=== PATIENT | male | born 1980 | race Caucasian/White ===

== ENCOUNTER 2016-10-31 03:19 | Emergency (ER) | payer OTHER ==
[2016-10-31] MEDS ORDERED: LIDOCAINE VISCOUS 2% 15 ML UDC MM STA (04:39)
[2016-10-31] MEDS ORDERED: MAG HYDROX/AL HYDROX/SIMETH 30 ML UDC PO STA (04:39)
[2016-10-31] MEDS ORDERED: LIDOCAINE VISCOUS 2% 15 ML UDC MM ONE (04:40)
[2016-10-31] MEDS ORDERED: MAG HYDROX/AL HYDROX/SIMETH 30 ML UDC ONE (04:40)
--- NOTE | 2016-10-31 04:44 | ED Physician Documentation ---
PD HPI ABD PAIN - Stated complaint Stated Complaint: ABDOMINAL PAIN - Chief complaint Chief Complaint: Abd Pain - History obtained from History obtained from: Patient, Family - History of Present Illness Timing - onset: How many days ago (4) Timing - duration: Days (4) Timing - details: Gradual onset, Still present, Waxing and waning Quality: Sharp, Pain Location: Epigastric, LUQ, LLQ Radiation: No: Chest, , Lower back, Left flank, Left shoulder, Right flank, Right shoulder, Upper back Worsened by: No: Eating Associated symptoms: Nausea. No: Fever, Vomiting, Hematemesis, Diarrhea, Constipation, Melena, Hematochezia, Dysuria, Hematuria, Chest pain, Dizzy Similar symptoms before: Has not had sx before Recently seen: Clinic (seen for routine yesterday morning and was not having any pain at the time.) - Additional information Additional information: 36y/o male began to have some pain in the left abdomen about 4 days ago. He describes the pain as shifting and not continuous. The pain has some spikes of severe pain. He does not think he is constipate but his BM's have been less than normal. Review of Systems Constitutional: reports: Fatigue. denies: Fever, Chills, Myalgias Eyes: denies: Decreased vision Ears: denies: Ear pain Nose: denies: Congestion Throat: denies: Sore throat Cardiac: denies: Chest pain / pressure, Palpitations Respiratory: denies: Dyspnea, Cough GI: reports: Abdominal Pain. denies: Nausea, Vomiting, Diarrhea : denies: Dysuria, Frequency Skin: denies: Rash Musculoskeletal: denies: Neck pain, Back pain, Extremity pain Neurologic: denies: Generalized weakness, Focal weakness PD PAST MEDICAL HISTORY - Past Medical History Past Medical History: No - Past Surgical History Past Surgical History: No - Present Medications Home Medications: Ambulatory Orders Medication Instructions Recorded Confirmed Terbinafine [Lamisil] 250 mg PO DAILY 10/31/16 10/31/16 - Allergies Allergies/Adverse Reactions: Allergies Allergy/AdvReac Type Severity Reaction Status Date / Time No Known Drug Allergies Allergy Verified 10/31/16 03:28 - Social History Does the pt smoke?: No Smoking Status: Never smoker Does the pt drink ETOH?: No Does the pt have substance abuse?: No - Immunizations Immunizations are current?: Yes - POLST Patient has POLST: No PD ED PE NORMAL - Vitals Vital signs reviewed: Yes (diastolic hypertension ) - General General: Alert and oriented X 3, No acute distress - HEENT HEENT: Atraumatic, PERRL, EOMI - Neck Neck: Supple, no meningeal sign, No bony TTP - Cardiac Cardiac: RRR, No murmur - Respiratory Respiratory: No respiratory distress, Clear bilaterally - Abdomen Abdomen: Soft, Other (mild tenderness to the Left lower quadrant is not reproducible and there is no garding or rebound. ) - Back Back: No CVA TTP, No spinal TTP - Derm Derm: Normal color, Warm and dry, No rash - Extremities Extremities: No deformity, No edema - Neuro Neuro: Alert and oriented X 3, No motor deficit, No sensory deficit, Normal speech - Psych Psych: Normal mood, Normal affect Results - Vitals Vitals: Vital Signs - 24 hr 10/31/16 10/31/16 03:29 05:43 Temperature 36.5 C Heart Rate 48 L 54 L Respiratory 15 14 Rate Blood Pressure 123/85 H 130/88 H O2 Saturation 97 98 Oxygen O2 Source Room air - Labs Labs: Laboratory Tests 10/31/16 10/31/16 10/31/16 03:45 03:45 04:50 WBC 9.8 RBC 5.64 Hgb 15.7 Hct 47.1 MCV 83.6 MCH 27.9 MCHC 33.4 RDW 12.8 Plt Count 204 MPV 8.5 Neut # 7.1 H Lymph # 2.1 Isabella # 0.5 Eos # 0.0 Baso # 0.0 Absolute Nucleated RBC 0.00 Nucleated RBCs 0.0 Sodium 138 Potassium 3.8 Chloride 102 Carbon Dioxide 28 Anion Gap 8.0 BUN 18 Creatinine 1.0 Estimated GFR (MDRD) 84 L Glucose 124 H Calcium 10.2 Total Bilirubin 0.5 AST 17 ALT 21 Alkaline Phosphatase 35 L Total Protein 7.2 Albumin 4.6 Globulin 2.6 Albumin/Globulin Ratio 1.8 Lipase 17 L Urine Color YELLOW Urine Clarity CLEAR Urine pH 6.0 Ur Specific Norman >=1.030 H Urine Protein NEGATIVE Urine Glucose (UA) NEGATIVE Urine Ketones NEGATIVE Urine Occult Blood NEGATIVE Urine Nitrite NEGATIVE Urine Bilirubin NEGATIVE Urine Urobilinogen 0.2 (NORMAL) Ur Leukocyte Esterase NEGATIVE Ur Microscopic Review NOT INDICATED Urine Culture Comments NOT INDICATED - Rads (name of study) CT abdomen and pelvis without Radiology: Prelim report reviewed, EMP read indepedently (stool throughout the colon without significant distention), See rad report PD MEDICAL DECISION MAKING - ED course Complexity details: reviewed results, re-evaluated patient, considered differential, d/w patient, d/w family ED course: 36 y/o male with shifting abdominal pain feels this is mostly in the LLQ. A GI cocktail did not improve the pain. A workup was benign and the finding was a continuous stool load throughout the colon. He was administered MOM and diagnosed with constipation. Departure - Departure Disposition: Home, Self Care Clinical Impression: Constipation Qualifiers: Constipation type: slow transit constipation Qualified Code(s): K59.01 - Slow transit constipation Condition: Stable Instructions: ED Constipation Follow-Up: Isaac Kaiser DO [Primary Care Provider] - Comments: Today in the Emergency Department your blood pressure was elevated. This can happen from the stress of the visit itself, from a current illness or circumstance or from uncontrolled hypertension. If you take blood pressure medications take your usual mediations, have your blood pressure re-checked in an appropriate setting and follow up any elevation with your primary care doctor.
[2016-10-31 05:03] LABS: BASOPHILS % (AUTO) 0.3 %; EOSINOPHILS % (AUTO) 0.3 %; HCT - HEMATOCRIT 47.1 % (42.0-52.0); HGB - HEMOGLOBIN 15.7 g/dL (14.0-18.0); LYMPHOCYTES # (AUTO) 2.1 10^3/uL (1.5-3.5); LYMPHOCYTES % (AUTO) 21.9 %; MEAN CORPUSCULAR HEMOGLOBIN 27.9 pg (27.0-31.0); MEAN CORPUSCULAR HGB CONC 33.4 g/dL (32.0-36.0); MEAN CORPUSCULAR VOLUME 83.6 fL (80.0-94.0); MEAN PLATELET VOLUME 8.5 fL (7.4-11.4); MONOCYTES # (AUTO) 0.5 10^3/uL (0.0-1.0); MONOCYTES % (AUTO) 5.2 %; NEUTROPHILS # (AUTO) 7.1 10^3/uL (1.5-6.6); NEUTROPHILS % (AUTO) 72.3 %; RED BLOOD COUNT 5.64 10^6/uL (4.70-6.10); RED CELL DISTRIBUTION WIDTH 12.8 % (12.0-15.0); UNCORRECTED WHITE BLOOD COUNT 9.8 x10^3/uL; WHITE BLOOD COUNT 9.8 x10^3/uL (4.8-10.8)
[2016-10-31 05:13] LABS: ALBUMIN/GLOBULIN RATIO 1.8 (1.0-2.2); BILIRUBIN,TOTAL 0.5 mg/dL (0.2-1.0); CALCIUM 10.2 mg/dL (8.5-10.3); POTASSIUM 3.8 mmol/L (3.5-5.0); TOTAL PROTEIN 7.2 g/dL (6.7-8.2)
[2016-10-31 05:16] LABS: BILIRUBIN,URINE NEGATIVE (NEGATIVE)
[2016-10-31 05:18] LABS: UA CHARGE (STRIP ONLY) YES; UR CULTURE IF IND NOT INDICATED
[2016-10-31 05:44] VITALS: BP 130/88
--- NOTE | 2016-10-31 06:11 | CT Preliminary Report ---
Exam: CT Abdomen/Pelvis W/O IMPRESSION: 1. No urolithiasis seen. 2. Suspect colonic diverticula, but no evidence of diverticulitis. 3. No other acute abnormalities seen. [facility] SITE ID: [id number]
--- NOTE | 2016-10-31 06:14 | CT Report ---
EXAM: CT ABDOMEN AND PELVIS (CT KUB) EXAM DATE: 10/31/2016 05:20 AM. CLINICAL HISTORY: Left lower quadrant pain. COMPARISONS: None. TECHNIQUE: Routine axial helical CT imaging was performed through the abdomen and pelvis without IV c ontrast. Reconstructions: Coronal and sagittal. In accordance with CT protocol optimization, one or more of the following dose reduction techniques w ere utilized for this exam: automated exposure control, adjustment of mA and/or KV based on patient s ize, or use of iterative reconstructive technique. FINDINGS: Lung Bases: Unremarkable. Right Kidney/Ureter: No stones, hydronephrosis, or hydroureter. No perinephric fat stranding. Left Kidney/Ureter: No stones, hydronephrosis, or hydroureter. No perinephric fat stranding. Other Solid Organs: Noncontrast images of the solid organs are grossly unremarkable. Gallbladder/Bile Ducts: Unremarkable. Peritoneal Cavity: No bowel obstruction seen. There probably are some colonic diverticula but no dive rticulitis is noted. No lymphadenopathy. No free air or free fluid. Appendix appears normal. Pelvic Organs: No bladder stones or wall thickening. Noncontrast images of the visualized pelvic orga ns are unremarkable. Vasculature: Unremarkable. Other: None. IMPRESSION: 1. No urolithiasis seen. 2. Suspect colonic diverticula, but no evidence of diverticulitis. 3. No other acute abnormalities seen. [facility] Referring Provider Line: [phone] SITE ID: [id number]
[2016-10-31] MEDS ORDERED: MAGNESIUM HYDROXIDE 2,400 MG/30 ML UDC ONE (06:49)
[2016-10-31] MEDS ORDERED: MAGNESIUM HYDROXIDE 2,400 MG/30 ML UDC PO STA (06:49)
== END 2016-10-31 06:57 | disposition home or self-care (01) ==
LOC: ED 03:19
DX: K59.01 Slow transit constipation (principal)
CPT/HCPCS: 36415; 74176; 80053; 81003; 83690; 85025; 87040; 99283; A9270; 81001; 87086

== ENCOUNTER 2018-02-25 14:05 | Outpatient (CLI) | payer OTHER | END 2018-02-25 14:06 | disposition home or self-care (01) | LOC: SC 14:05 | PROVIDERS: ATTEND Internal Medicine Pulmonary Disease | DX: G47.33 Obstructive sleep apnea (adult) (pediatric) (principal) | CPT/HCPCS: 99203; 99212 ==

== ENCOUNTER 2018-11-13 21:04 | Observation (INO) | payer OTHER ==
--- NOTE | 2018-11-13 21:20 | ED Physician Documentation ---
History of Present Illness - Stated complaint Stated Complaint: BROWN URINE/BODY PAIN - Chief complaint Chief Complaint: General - History obtained from History obtained from: Patient - Additonal information Additional information: Patient is a previously healthy 38-year-old male presenting with concern for rhabdomyolysis. Patient reports that he traveled to the [facility] last week house hunting with his and did not perform any significant exercise during that time, but feels that he was likely dehydrated. Patient then returned home and on Sunday performed an exceedingly difficult to [employer] workout. Patient reports that he usually performs CrossFit several times a week, but had not done so in several weeks due to life activities and busyness. Over the past several days he has felt exceedingly tired, weak, sore, and started having darker colored urine this evening. Patient contacted his physician who directed him to the ED. He otherwise denies specific pain including chest pain, abdominal pain, as well as other urinary changes, stool changes, vomiting, fever, rash, bruising, or other skin changes.No other improving or worsening factors noted. Review of Systems Constitutional: denies: Fever GI: denies: Abdominal Pain : reports: Hematuria PD PAST MEDICAL HISTORY - Past Medical History Past Medical History: No - Past Surgical History Past Surgical History: No - Present Medications Home Medications: Ambulatory Orders Medication Instructions Recorded Confirmed Terbinafine [Lamisil] 250 mg PO DAILY 10/31/16 10/31/16 - Allergies Allergies/Adverse Reactions: Allergies Allergy/AdvReac Type Severity Reaction Status Date / Time No Known Drug Allergies Allergy Verified 10/31/16 03:28 - Social History Does the pt smoke?: No Smoking Status: Never smoker Does the pt drink ETOH?: No Does the pt have substance abuse?: No - Immunizations Immunizations are current?: Yes - POLST Patient has POLST: No PD ED PE NORMAL - Vitals Vital signs reviewed: Yes - General General: Alert and oriented X 3, No acute distress, Well developed/nourished - HEENT HEENT: Atraumatic, Moist mucous membranes - Cardiac Cardiac: RRR, No murmur - Respiratory Respiratory: No respiratory distress, Clear bilaterally - Abdomen Abdomen: Normal bowel sounds, Soft, Non tender, Non distended - Derm Derm: Normal color, Warm and dry, No rash - Extremities Extremities: No deformity, No tenderness to palpate, No edema, No calf tenderness / cord - Neuro Neuro: Alert and oriented X 3, No motor deficit, No sensory deficit - Psych Psych: Normal mood, Normal affect Results - Vitals Vitals: Vital Signs - 24 hr 11/13/18 21:10 Temperature 36.7 C Heart Rate 70 Respiratory 16 Rate Blood Pressure 155/110 H O2 Saturation 97 Oxygen O2 Source Room air - Labs Labs: Laboratory Tests 11/13/18 11/13/18 11/13/18 21:15 21:15 21:15 WBC 9.8 RBC 5.49 Hgb 15.7 Hct 45.9 MCV 83.6 MCH 28.5 MCHC 34.1 RDW 12.8 Plt Count 215 MPV 7.7 Neut # (Auto) 7.0 H Lymph # (Auto) 2.1 Dent # (Auto) 0.6 Eos # (Auto) 0.1 Baso # (Auto) 0.1 Absolute Nucleated RBC 0.00 Nucleated RBC % 0.0 PT 11.8 INR 1.0 APTT 27.5 Sodium 140 Potassium 3.9 Chloride 102 Carbon Dioxide 28 Anion Gap 10.0 BUN 16 Creatinine 0.9 Estimated GFR (MDRD) 94 Glucose 90 Lactic Acid Calcium 9.1 Total Bilirubin 0.8 AST 732 H ALT 222 H Alkaline Phosphatase 47 Total Creatine Kinase 69531 H* CK-MB (CK-2) Total Protein 6.8 Albumin 4.5 Globulin 2.3 Albumin/Globulin Ratio 2.0 Lipase 27 Urine Color Urine Clarity Urine pH Ur Specific Hudson Urine Protein Urine Glucose (UA) Urine Ketones Urine Occult Blood Urine Nitrite Urine Bilirubin Urine Urobilinogen Ur Leukocyte Esterase Urine RBC Urine WBC Ur Squamous Epith Cells Urine Bacteria Ur Microscopic Review Urine Culture Comments 11/13/18 11/13/18 11/13/18 21:15 21:31 22:34 WBC RBC Hgb Hct MCV MCH MCHC RDW Plt Count MPV Neut # (Auto) Lymph # (Auto) Dent # (Auto) Eos # (Auto) Baso # (Auto) Absolute Nucleated RBC Nucleated RBC % PT INR APTT Sodium Potassium Chloride Carbon Dioxide Anion Gap BUN Creatinine Estimated GFR (MDRD) Glucose Lactic Acid 1.1 Calcium Total Bilirubin AST ALT Alkaline Phosphatase Total Creatine Kinase CK-MB (CK-2) 68.9 H Total Protein Albumin Globulin Albumin/Globulin Ratio Lipase Urine Color YELLOW Urine Clarity CLEAR Urine pH 6.5 Ur Specific Hudson 1.020 Urine Protein 30 H Urine Glucose (UA) NEGATIVE Urine Ketones NEGATIVE Urine Occult Blood LARGE H Urine Nitrite NEGATIVE Urine Bilirubin NEGATIVE Urine Urobilinogen 0.2 (NORMAL) Ur Leukocyte Esterase NEGATIVE Urine RBC 0-5 Urine WBC 0-3 Ur Squamous Epith Cells RARE Squamous Urine Bacteria None Seen Ur Microscopic Review INDICATED Urine Culture Comments NOT INDICATED PD MEDICAL DECISION MAKING - ED course Complexity details: reviewed results, re-evaluated patient, considered differential, d/w patient, d/w family ED course: Feel that patient is likely experiencing rhabdomyolysis given his excessive workout several days ago, preceding dehydration, as well as his complaints today. Physical exam is relatively unremarkable and do not find evidence of petechiae, ecchymosis, or other rash. Do not feel patient is in DIC, hemorrhage, or other emergent hematological condition. Patient also denies symptoms that would raise high suspicion for DVT, PE, cardiac issues, intra- abdominal issues, but considered. Patient to start on significant fluid resuscitation and screening lab work and urinalysis obtained. Do not feel he requires imaging at this juncture.Screening lab work returned positive for CK 71,654, CK-MB 68.9, ALT 222, AST 732 and blood present in the urine. Unable to order myoglobin testing in the urine. Patient continued on IV fluids and had no significant further complaints. At this time, feel it is best to bring patient into the hospital for further fluid resuscitation, as well as repeat labs and any other treatment necessary. Patient and hospitalist amenable to this plan. Departure - Departure Clinical Impression: Rhabdomyolysis Qualifiers: Rhabdomyolysis type: traumatic Encounter type: initial encounter Qualified Code(s): T79.6XXA - Traumatic ischemia of muscle, initial encounter Condition: Good
[2018-11-13] MEDS ORDERED: SODIUM CHLORIDE 0.9% 3,000 ML IV ONE (21:26)
[2018-11-13 21:36] LABS: BASOPHILS # (AUTO) 0.1 10^3/uL (0.0-0.1); BASOPHILS % (AUTO) 0.5 %; EOSINOPHILS # (AUTO) 0.1 10^3/uL (0.0-0.7); EOSINOPHILS % (AUTO) 0.7 %; HGB - HEMOGLOBIN 15.7 g/dL (14.0-18.0); LYMPHOCYTES # (AUTO) 2.1 10^3/uL (1.5-3.5); LYMPHOCYTES % (AUTO) 21.3 %; MEAN CORPUSCULAR HEMOGLOBIN 28.5 pg (27.0-31.0); MEAN CORPUSCULAR HGB CONC 34.1 g/dL (32.0-36.0); MEAN CORPUSCULAR VOLUME 83.6 fL (80.0-94.0); MEAN PLATELET VOLUME 7.7 fL (7.4-11.4); MONOCYTES # (AUTO) 0.6 10^3/uL (0.0-1.0); MONOCYTES % (AUTO) 6.5 %; PLT - PLATELET COUNT 215 10^3/uL (130-450); RED BLOOD COUNT 5.49 10^6/uL (4.70-6.10); RED CELL DISTRIBUTION WIDTH 12.8 % (12.0-15.0); WHITE BLOOD COUNT 9.8 x10^3/uL (4.8-10.8)
[2018-11-13 21:41] LABS: PT - PROTHROMBIN TIME 11.8 secs (9.9-12.6)
[2018-11-13 21:48] LABS: PARTIAL THROMBOPLASTIN TIME 27.5 secs (24.9-33.3)
[2018-11-13 22:02] LABS: ALBUMIN 4.5 g/dL (3.2-5.5); BILIRUBIN,TOTAL 0.8 mg/dL (0.2-1.0); CALCIUM 9.1 mg/dL (8.5-10.3); CREATININE 0.9 mg/dL (0.6-1.2); TOTAL PROTEIN 6.8 g/dL (6.7-8.2)
[2018-11-13 22:43] LABS: BILIRUBIN,URINE NEGATIVE (NEGATIVE); GLUCOSE, URINE (UA) NEGATIVE (NEGATIVE); KETONES,URINE (UA) NEGATIVE (NEGATIVE); LEUKOCYTE ESTERASE, URINE NEGATIVE (NEGATIVE); NITRITE,URINE NEGATIVE (NEGATIVE); OCCULT BLOOD,URINE LARGE (NEGATIVE); PH,URINE 6.5 PH (5.0-7.5); PROTEIN,URINE 30 mg/dL (NEGATIVE); UROBILINOGEN,URINE 0.2 (NORMAL) E.U./dL (NORMAL)
[2018-11-13 22:47] LABS: CLARITY,URINE CLEAR (CLEAR)
[2018-11-13 22:56] LABS: BACTERIA,URINE None Seen /HPF (None Seen); RBC,URINE 0-5 /HPF (0-5); SQUAMOUS EPITHELIAL CELL,UR RARE Squamous (<= Few)
[2018-11-13] MEDS ORDERED: SODIUM CHLORIDE 0.9% 1,000 ML IV SCH (23:45)
[2018-11-13] MEDS ORDERED: ONDANSETRON 4 MG/2 ML VIAL IVP PRN (23:57)
--- NOTE | 2018-11-14 00:05 | HISTORY & PHYSICAL EXAMINATION ---
Chief Complaint - Chief Complaint Chief Complaint: fatigue, sore muscles, now with tea colored urine History of Present Illness - Admitted From Admitted From:: Home/emergency room - History Obtained From Records Reviewed: [facility] History obtained from: Patient and emergency room doctor Exam Limitations: None - History of Present Illness HPI Comment/Other: He is a healthy white male who has no major medical illnesses. He was back on the [facility] looking for new housing since he is about to move there. 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 He has not worked out for about 3 weeks. Workout was particularly aggressive. Over the next few days he has had sore muscles that were getting worse. He felt weak and fatigued. Today his urine turned tea colored. He spoke to his physician at the [facility] and they recommended he come to the emergency room. He is taking Lamisil for fungal infection. He is not on a statin. He has had no trauma, falls. Denies fever, chills. There is no redness, swelling, heat to any muscle group. In the emergency room he was evaluated by Dr. Mcdnaiels. He is slightly hypertensive at 155/110. After hydration with 2 L he came down to 138/85. He is afebrile, normal pulse rate, saturating well on room air. Physical exam is normal. However his CPK is 71,654. AST is 732, ALT 222. BUN and creatinine are normal as is a CBC. He is now placed in observation for rhabdomyolysis. He does not have electrolyte abnormality, renal failure. There is no muscle infection, trauma or myopathy requiring immunosuppressive's. History - Past Medical History Cardiovascular: reports: Other (Usually has low blood pressure. 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 No active TB hx.) Neuro: reports: None Endocrine/Autoimmune: reports: None GI: reports: None : reports: None HEENT: reports: None Psych: reports: None Musculoskeletal: reports: None Derm: reports: Other (Onychomycosis of the right great toenail for years, currently on second 90-day stint of Lamisil) MRSA Hx?: No - Past Surgical History HEENT: reports: Other ([facility]) - Family & Social History Family History Comment/Other: Mother is somewhere in her early to mid 60s. She has rheumatoid arthritis but is otherwise healthy. father is unknown. One half brother is completely healthy. 2 children are completely healthy Living arrangement: At home Living Situation: With spouse/s.o. Social History Notes: From [place]. Smoked starting at the age of 15 and stopped around age 24. The most he smoked was 1 pack/day. He drinks 1 beer, approximately 1 a week. No history of alcohol abuse or recreational substance abuse. He is to his second , they have 2 children together. 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 - Substance History Use: Uses substance without health or social issues: Alcohol Abuse: Recurrent use of substance despite neg consequences: NONE Dependence: Experiences withdrawal or developed tolerances: NONE - POLST Patient has POLST: No POLST Status: Full Code Meds/Allgy - Home Medications Home Medications: Ambulatory Orders Medication Instructions Recorded Confirmed Terbinafine [Lamisil] 250 mg PO DAILY 10/31/16 10/31/16 - Allergies Allergies/Adverse Reactions: Allergies Allergy/AdvReac Type Severity Reaction Status Date / Time No Known Drug Allergies Allergy Verified 10/31/16 03:28 Review of Systems - Constitutional Constitutional: reports: Fatigue, Malaise, Weakness. denies: Fever, Chills, Poor appetite, Diaphoresis, Night sweats - Eyes Eyes: denies: Pain, Irritation, Amaurosis, Blurred vision, Spots in vision, Field loss, Vision loss - Ears, Nose & Throat Ears, Nose & Throat: denies: Ear pain, Hearing loss, Hearing aids, Tinnitus, Vertigo, Nasal obstruction, Nasal congestion, Postnasal drainage, Sore throat - Cardiovascular Cariovascular: denies: Irregular heart rate, Palpitations, Chest pain, Edema, Lightheadedness, Syncope, Exertional dyspnea, Decr. exercise tolerance - Respiratory Respiratory: reports: Snoring, Apnea. denies: Cough, Sputum production, Wheezing, Hemoptysis, Orthopnea, SOB at rest, SOB with exertion, Stridor, Pleuritic pain - Gastrointestinal Gastrointestinal: reports: Constipation (occasionally). denies: Abdominal pain, Abdominal distention, Diarrhea, Change in bowel habits, Rectal bleeding, Black stools, Bloody stools, Nausea - Genitourinary Genitourinary: reports: Other (tea colored urine today). denies: Dysuria, Frequency, Urgency, Hematuria, Incontinence, Flank pain - Musculoskeletal Musculoskeletal: reports: Muscle pain, Muscle aches, Stiffness, Muscle weakness. denies: Back pain, Limited range of motion, Gout, Joint pain, Joint swelling - Integumentary Integumentary: denies: Rash, Pruritis, Lesions, Dryness, Lumps, Acne, Pigment changes - Neurological Neurological: reports: General weakness. denies: Focal weakness, Headache, Dizziness, Numbness, Memory problems, Pre-existing deficit, Abnormal gait, Seizures, Incoordination, Slurred speech - Psychiatric Psychiatric: denies: Depression, Anxiety, Suicidal, Delusions, Hallucinations - Endocrine Endocrine: denies: Polyuria, Polydypsia, Polyphagia - Hematologic/Lymphatic Hematologic/Lymphatic: denies: Anemia, Bruising, Petechiae, Blood clots, Lymphadenopathy Prior Level of Functionality: Fully active father and . Completely independent with activities of daily living. Fully employed with no restrictions. Exam - Vital Signs Reviewed Vital Signs: Yes Vital Signs: Vital Signs x48h Temp Pulse Resp BP Pulse Ox 11/14/18 00:01 57 L 20 138/85 H 100 11/13/18 21:10 36.7 C 70 16 155/110 H 97 - Physical Exam General Appearance: positive: No acute distress, Alert, Other (5 foot 10-1/2 i nch male at 93 kg with large muscle groups of arms chest legs thighs. He says they are all diffusely swollen) Eyes Bilateral: positive: PERRL, EOMI ENT: positive: Other (Uvula has been removed.). negative: Oral lesions Neck: positive: Thyroid nml, No JVD, Trachea midline. negative: Stiff neck, Carotid bruit Respiratory: positive: Chest non-tender. negative: Wheezes, Rales, Rhonchi Cardiovascular: negative: Regular rate & rhythm, Systolic murmur, Gallop/S4, Friction rub Peripheral Pulses: positive: 1+ Abdomen: positive: Non-tender, No organomegaly, Nml bowel sounds, No distention. negative: Guarding, Rebound Back: positive: Nml inspection Skin: positive: Color nml, Warm, Dry Extremities: positive: Full ROM, No pedal edema, Other (Although the muscles appear grossly normal to me, he says that everything just seems swollen. Muscles of triceps, biceps, forearms, quadriceps, hamstrings, calves all hurt. But there is no heat, redness, or edema.) Neurologic/Psychiatric: positive: Oriented x3, CN's nml (2-12), Motor nml. negative: Weakness Reflexes: Bicep (R): 1+, Bicep (L): 1+, Knee (R): 1+, Knee (L): 1+, Ankle (R): 0, Ankle (L): 0 Babinski Reflex: Right: Down, Left: Down Conclusion/Plan - Problem List (1) Rhabdomyolysis Conclusion/Plan: Characterized by myalgias, pigment dysuria, muscle weakness. CPK is elevated. Neurologic exam is normal. He does not have electrolyte imbalance, acute renal failure, compartment syndrome, or muscle deformity. Other than Lamisil, he is not taking any other toxic substances. He is not drinking, and does not have any metabolic or genetic disorder. Plan: Observation status IV fluids at 500 cc an hour to achieve a goal of UOP of 200 cc/hr Toxicology screen for alcohol, methamphetamines, barbiturates, benzodiazepines, cocaine, methadone and opiates will be ordered. If any of these are positive, will check hepatitis panel and liver US. Since his weight lifting occurred a few days ago, and his CPK measurement is now few days later, I will hold off on alkalinizing his urine. His BUN and creatinine have been normal with this evaluation. The usual standard is to discharge patients when they have a CK between 5000- 10,000. However there are no clinical trials to support this position. There is no consensus regarding the safety CK level to determine when to stop IV hydration or when it is safe to discharge the patient. In this patient, reducing his CK to less than 50,000, and no pain leads me to think he could be safely discharged and monitor carefully by his primary care provider in the outpatient setting. Qualifiers: Rhabdomyolysis type: traumatic Encounter type: initial encounter Qualified Code(s): T79.6XXA - Traumatic ischemia of muscle, initial encounter (2) Abnormal results of liver function studies Conclusion/Plan: This is usually associated with rhabdomyolysis. However this patient is also on Lamisil. I have explained to him that I would recommend him stopping Lamisil. He is already received a 90-day course for his onychomycosis. And is in his second 90-day course after liver enzymes were found to be negative. If he continues to suffer from nailbed pain from onychomycosis, I would recommend a digital block, and removing the nail as a whole. Is a new nail grows in, he can put antifungal ointment in without having to take Lamisil. (3) Elevated blood pressure reading without diagnosis of hypertension Conclusion/Plan: The patient states that he usually has a very low blood pressure. He is also in such good shape that he usually has bradycardia. So is surprised to hear that his blood pressure is as high as it is. It is already trending on his way down after a few hours in the emergency room. I will let him follow-up with his primary care provider, Dr. Heaton in the outpatient setting - Lab Results Fish Bones: 11/13/18 21:15 11/13/18 21:15 Core Measures - Anticipated LOS I expect patient to be DC'd or transferred within 96 hours.: Yes - DVT/VTE - Prophylaxis VTE/DVT Device ordered at admit?: Yes
[2018-11-14] MEDS: SODIUM CHLORIDE FLUSH 0.9% 10 ML SYRINGE IVP SCH ×3 (01:12→17:26)
[2018-11-14] MEDS: SODIUM CHLORIDE FLUSH 0.9% 10 ML SYRINGE IVP PRN ×3 (01:13→14:58)
[2018-11-14] MEDS: oxyCODONE 5 MG TABLET PO PRN ×4 (01:25→21:59)
[2018-11-14 01:34] LABS: MUDS CUTOFF CONCENTRATIONS CUTOFF CONC BELOW:
[2018-11-14 01:45] LABS: AMPHETAMINE SCREEN,URINE NEGATIVE (NEGATIVE); BENZODIAZEPINES SCREEN, URINE NEGATIVE (NEGATIVE); COCAINE SCREEN URINE NEGATIVE (NEGATIVE); METHADONE SCREEN, URINE NEGATIVE (NEGATIVE); METHAMPHETAMINES SCREEN, URINE NEGATIVE (NEGATIVE); OPIATE SCREEN, URINE NEGATIVE (NEGATIVE); OXYCODONE SCREEN, URINE NEGATIVE (NEGATIVE); PROPOXYPHENE SCREEN, URINE NEGATIVE (NEGATIVE); TRICYCLIC ANTIDEPRESSANT,URINE NEGATIVE (NEGATIVE)
[2018-11-14] MEDS: SODIUM CHLORIDE 0.9% 1,000 ML IV SCH ×10 (03:26→23:36)
[2018-11-14 05:57] LABS: ALBUMIN 3.4 g/dL (3.2-5.5); ALBUMIN/GLOBULIN RATIO 1.7 (1.0-2.2); BILIRUBIN,TOTAL 0.6 mg/dL (0.2-1.0); CALCIUM 7.5 mg/dL (8.5-10.3); CREATININE 0.8 mg/dL (0.6-1.2); TOTAL PROTEIN 5.4 g/dL (6.7-8.2)
[2018-11-14] MEDS ORDERED: CALCIUM GLUCONATE 1,000 MG in SODIUM CHLORIDE 0.9% 50 ML IV ONE (06:56)
[2018-11-14] MEDS ORDERED: CYCLOBENZAPRINE 10 MG TABLET PO PRN (08:32)
[2018-11-14] MEDS ORDERED: HYDROmorphone 0.5 MG/0.5 ML SYRINGE IVP STA (08:33)
--- NOTE | 2018-11-14 08:52 | Discharge Plan ---
Discharge Plan Disposition: Home, Self Care Condition: Good Prescriptions: oxyCODONE ER [OxyCONTIN] 10 mg PO Q8HR #40 tablet Cyclobenzaprine [Flexeril] 10 mg PO TID PRN #30 tablet PRN Reason: Spasms Diet: Regular Activity Restrictions: Activity as Tolerated Shower Restrictions: No Driving Restrictions: No Weight Bearing: Full Weight Instruction Topics: Rhabdomyolysis, ED Narcotic Abuse Additional Instructions or Follow Up instructions: You were admitted for condition called rhabdomyolysis for which you felt sy mptoms of extreme muscle aches, malaise, generalized weakness, and decreased range of motion to your upper extremities. This condition although can cause liver involvement and kidney problems it shows no impairment to your renal function as evidenced in your blood lab test. You do have some mild liver impairment however this resolves over time as well as the overall condition of your rhabdomyolysis. Your creatinine kinase levels were extremely high and these also take time for them to taper off with aggressive fluid resuscitation along with supportive care and pain control. He will continue to take pain medications, muscle relaxants, and keep hydrated throughout your recovery period. You were also instructed to stop Lamisil as this can potentiate further liver damage in the setting of your acute rhabdomyolysis. He will return to your PCP in about 1 or 2 weeks time. No Smoking: If you smoke, Please STOP! Call for help. Follow-up with: GERARD CASTILLO MD [Primary Care Provider] - 2 Weeks (Return to PCP in 1 or 2 weeks)
--- NOTE | 2018-11-14 09:02 | DISCHARGE SUMMARY ---
"Discharge Summary Admit Date: 11/13/18 Discharge Date: 11/14/18 Discharging Provider: Dr. Fuller Primary Care Provider: [facility] navsd Code Status: Attempt Resuscitation Condition at Discharge: Good Discharge Disposition: 01 Home, Self Care - DIAGNOSES Admission Diagnoses: (1) Rhabdomyolysis (2) Abnormal results of liver function studies (3) Elevated blood pressure reading without diagnosis of hypertension Discharge Diagnoses with Status of Each Condition: (1) Acute Rhabdomyolysis, Stable (2) Abnormal results of liver function studies, Resolving (3) Elevated blood pressure reading without diagnosis of hypertension, Stable (4) Bilateral upper extremity myalgias with limited ROM, Improved (5) Impaired fasting glucose, stable - HPI History of Present Illness: Mr. Oswaldo Berumen is a 38-year-old healthy white male who has no major medical illnesses. He was back on the [facility] looking for new housing since he is about to move there. 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 He has not worked out for about 3 weeks. Workout was particularly aggressive. Over the next few days he has had sore muscles that were getting worse. He felt weak and fatigued. Today his urine turned tea colored. He spoke to his physician at the [facility] and they recommended he come to the emergency room. He is taking Lamisil for fungal infection. He is not on a statin. He has had no trauma, falls. Denies fever, chills. There is no redness, swelling, heat to any muscle group. In the emergency room he was evaluated by Dr. Mcdaniels. He is slightly hypertensive at 155/110. After hydration with 2 L he came down to 138/85. He is afebrile, normal pulse rate, saturating well on room air. Physical exam is normal. However his CPK is 71,654. AST is 732, ALT 222. BUN and creatinine are normal as is a CBC. He is now placed in observation for rhabdomyolysis. He does not have electrolyte abnormality, renal failure. There is no muscle infection, trauma or myopathy requiring immunosuppressive's. - CONSULTS | PROCEDURES Consultations: None Procedures: None - HOSPITAL COURSE Hospital Course: Patient was managed medically and supportively with aggressive IV fluid resuscitation as well as pain control with oxycodone, Flexeril, and monitoring of his liver and renal function. In addition CK trending although markedly elevated is not a direct indicator of prognosis. Patient had Lamisil discontinued as this can potentiate further transaminitis and liver impairment. Patient was not placed on Tylenol for this reason alone as well. Patient had some limitations of bilateral upper extremity flexion secondary to his level of rhabdomyolysis however he was ambulatory. Patient was afebrile throughout hospitalization with a lactic acid 1.1 and no evidence of underlying infection or other organ involvement. Patient had a preserved renal function. Despite CK being above 82,000 rhabdomolysis usually begins to improve after approximately 3 to 5 days. Patient lacks GI or symptoms and does not have gross hematuria. In addition patient lacks evidence of metabolic acidosis. Patient will be be given a prescription to Flexeril 10 mg p.o. 3 times daily as needed as well as oxycodone 10 mg ER every 8 hours as needed for limited quantity. Upon discharge patient was hemodynamically stable, complaining of myalgias mainly to the upper extremities and truncal area but otherwise unremarkable and able to go home in stable disposition to follow-up with PCP in 1 to 2 weeks. - ALLERGIES Allergies/Adverse Reactions: Allergies Allergy/AdvReac Type Severity Reaction Status Date / Time No Known Drug Allergies Allergy Verified 10/31/16 03:28 - MEDICATIONS Home Medications: Ambulatory Orders Medication Instructions Recorded Confirmed Cyclobenzaprine [Flexeril] 10 mg PO TID PRN #30 tablet 11/14/18 oxyCODONE ER [OxyCONTIN] 10 mg PO Q8HR #40 tablet 11/14/18 - PHYSICAL EXAM AT DISCHARGE General Appearance: positive: No acute distress, Alert, Anxious Eyes Bilateral: positive: Normal inspection, PERRL, EOMI ENT: positive: ENT inspection nml, Pharynx nml, No signs of dehydration Neck: positive: Nml inspection, Thyroid nml, No JVD, Trachea midline Respiratory: positive: Chest non-tender, No respiratory distress, Breath sounds nml Cardiovascular: positive: Regular rate & rhythm, No murmur, No gallop Abdomen: positive: Non-tender, No organomegaly, Nml bowel sounds, No distention. negative: Tenderness Back: positive: Nml inspection Skin: positive: Color nml, No rash, Warm Extremities: positive: Nml appearance, Other (Bilateral upper extremity tenderness on palpation with limited range of motion to flexion) Neurologic/Psychiatric: positive: Oriented x3, CN's nml (2-12) Reflexes: Bicep (R): 2+, Bicep (L): 2+, Knee (R): 2+, Knee (L): 2+, Ankle (R): 2+, Ankle (L): 2+ - LABS Result Diagrams: 11/13/18 21:15 11/14/18 05:30 - QUALITY (Female Hip Fx Only) Was patient sent home on osteoporosis medication?: No - FOLLOW UP Follow Up: To follow-up with [facility] in about 1 or 2 weeks to see his PCP - TIME SPENT Time Spent in Discharge (Minutes): 30"
[2018-11-14] MEDS: POLYETHYLENE GLYCOL 3350 17 GM PACKET PO SCH (11:14)
[2018-11-14] MEDS ORDERED: HYDROmorphone 1 MG/ML CARPUJECT IVP PRN (11:52)
--- NOTE | 2018-11-14 14:26 | MISCELLANEOUS PROVIDER NOTE ---
Miscellaneous Provider Note - - Note: Subjective: Patient complaining of upper extremity soreness and unable to perform full flexion. Patient is amatory, eating, going to the bathroom. Patient mentions being on Lamisil previously. Objective: Vital signs hemodynamically stable, afebrile, heart rate of 58 bpm, blood pressure 1 three 5/85. RR 16, 98% O2 saturation on 2 L nasal cannula, Patient typically on home CPAP. Labs: Reviewed Imaging studies: None General Appearance: positive: No acute distress, Alert, Other (5 foot 10-1/2 inch male at 100 kg with large muscle groups of arms chest legs thighs. He says they are all diffusely swollen) Eyes Bilateral: positive: PERRL, EOMI ENT: positive: Other (Uvula has been removed.). negative: Oral lesions Neck: positive: Thyroid nml, No JVD, Trachea midline. negative: Stiff neck, Carotid bruit Respiratory: positive: Chest non-tender. negative: Wheezes, Rales, Rhonchi Cardiovascular: negative: Regular rate & rhythm, Systolic murmur, Gallop/S4, Friction rub Peripheral Pulses: positive: 1+ Abdomen: positive: Non-tender, No organomegaly, Nml bowel sounds, No distention. negative: Guarding, Rebound Back: positive: Nml inspection Skin: positive: Color nml, Warm, Dry Extremities: positive: Full ROM, No pedal edema, Other (Although the muscles appear grossly normal to me, he says that everything just seems swollen. Muscles of triceps, biceps, forearms, quadriceps, hamstrings, calves all hurt. But there is no heat, redness, or edema.). Improvement to truncal muscles, lower extremities. Neurologic/Psychiatric: positive: Oriented x3, CN's nml (2-12), Motor nml. negative: Weakness Reflexes: Bicep (R): 1+, Bicep (L): 1+, Knee (R): 1+, Knee (L): 1+, Ankle (R): 0, Ankle (L): 0 Babinski Reflex: Right: Down, Left: Down Assessment/plan: - Problem List (1) Rhabdomyolysis Conclusion/Plan: Acute rhabdomyolysis secondary to excessive CrossFit training superimposed on the side effects of Lamisil. Patient has no renal dysfunction, continues on 500 mL/h at a high rate for aggressive fluid resuscitation, no electrolyte disturbance noted. No compartmental syndrome or muscle deformity as well as transaminitis will be followed. Patient to stay another day for prevention of organ dysfunction. I believe that Lamisil may have caused hepatotoxicity along with rhabdomyolysis that was exacerbated from his cross fit workouts. Patient under observation status at the present moment still requiring pain control for muscle soreness. Urine drug screen was negative. We will continue with CK trending. Will redraw CK. Typically CPK levels begin to fall on average after 3 to 5 days. The usual standard is to discharge patients when they have a CK between 5000- 10,000. However there are no clinical trials to support this position. There is no consensus regarding the safety CK level to determine when to stop IV hydration or when it is safe to discharge the patient. In this patient, reducing his CK to less than 50,000, and no pain leads me to think he could be safely discharged and monitor carefully by his primary care provider in the outpatient setting. Qualifiers: Rhabdomyolysis type: traumatic Encounter type: initial encounter Qualified Code(s): T79.6XXA - Traumatic ischemia of muscle, initial encounter (2) Abnormal results of liver function studies Conclusion/Plan: This is slowly improving. This is usually associated with rhabdomyolysis. However this patient is also on Lamisil. Lamisil currently on hold. He is already received a 90-day course for his onychomycosis. And is in his second 90-day course after liver enzymes were found to be negative. If he continues to suffer from nailbed pain from onychomycosis, I would recommend a digital block, and removing the nail as a whole. Is a new nail grows in, he can put antifungal ointment in without having to take Lamisil. (3) Elevated blood pressure reading without diagnosis of hypertension Conclusion/Plan: Likely as result of pain induction elevating blood pressure, will not treat and defer off antihypertensives for now. Would recommend follow-up with his primary care provider, Dr. Heaton in the outpatient setting. (4) Impaired fasting glucose May have to do with patient's existing rhabdomyolysis and an inflammatory state. Hemoglobin A1c and a fasting glucose to be followed as an outpatient. (5) Myalgias secondary to acute rhabdomyolysis Patient still requiring pain control with Dilaudid and oxycodone which likely will improve range of motion to upper extremities. Patient is ambulatory at this point. Patient will be prescribed oxycodone plus or minus Flexeril as an outpatient if needed. Supportive care to continue as well as IV fluids. Continue with DVT/GI prophylaxis
[2018-11-15] MEDS: SODIUM CHLORIDE FLUSH 0.9% 10 ML SYRINGE IVP SCH ×2 (01:39→08:15)
[2018-11-15] MEDS: SODIUM CHLORIDE 0.9% 1,000 ML IV SCH ×5 (01:39→10:20)
[2018-11-15] MEDS: oxyCODONE 5 MG TABLET PO PRN ×3 (04:11→13:18)
[2018-11-15 06:33] LABS: ALBUMIN 3.5 g/dL (3.2-5.5); ALBUMIN/GLOBULIN RATIO 1.6 (1.0-2.2); ALKALINE PHOSPHATASE 40 IU/L (42-121); ALT ALANINE AMINOTRANSFERASE 267 IU/L (10-60); AST ASPARTATE AMINOTRANSFERASE 740 IU/L (10-42); BILIRUBIN,TOTAL 0.5 mg/dL (0.2-1.0); BUN - BLOOD UREA NITROGEN 9 mg/dL (6-20); CARBON DIOXIDE - CO2 23 mmol/L (21-32); CHLORIDE 108 mmol/L (101-111); CREATININE 0.8 mg/dL (0.6-1.2); GFR - MDRD 108 (>89); GLUCOSE 118 mg/dL (70-100); SODIUM 139 mmol/L (135-145); TOTAL PROTEIN 5.7 g/dL (6.7-8.2)
[2018-11-15 06:36] LABS: CK- CREATINE KINASE > 82000 IU/L (22-269)
--- NOTE | 2018-11-15 07:57 | Discharge Plan ---
Discharge Plan Disposition: 01 Home, Self Care Condition: Good Prescriptions: Ondansetron Odt [Zofran] 4 mg PO Q4HR PRN #40 tab PRN Reason: Nausea / Vomiting oxyCODONE ER [OxyCONTIN] 10 mg PO Q8HR #40 tablet Cyclobenzaprine [Flexeril] 10 mg PO TID PRN #30 tablet PRN Reason: Spasms Docusate Sodium 250Mg Capsule [Colace 250Mg Capsule] 250 mg PO DAILY #30 capsule predniSONE [Prednisone] 60 mg PO DAILY #15 tablet Diet: Regular (Increase oral intake of fluids) Activity Restrictions: Activity as Tolerated Shower Restrictions: No Driving Restrictions: No Weight Bearing: Full Weight Instruction Topics: Cyclobenzaprine tablets, Ondansetron oral dissolving tablet, Oxycodone tablets or capsules, Rhabdomyolysis, ED Narcotic Abuse Additional Instructions or Follow Up instructions: You were admitted for condition called rhabdomyolysis for which you felt symptoms of extreme muscle aches, malaise, generalized weakness, and decreased range of motion to your upper extremities. This condition although can cause liver involvement and kidney problems it shows no impairment to your renal function as evidenced in your blood lab test. You do have some mild liver impairment however this resolves over time as well as the overall condition of your rhabdomyolysis. Your creatinine kinase levels were extremely high and the se also take time for them to taper off with aggressive fluid resuscitation along with supportive care and pain control. He will continue to take pain medications, muscle relaxants, and keep hydrated throughout your recovery period. You were also instructed to stop Lamisil as this can potentiate further liver damage in the setting of your acute rhabdomyolysis. He will return to your PCP in about 1 or 2 weeks time. No Smoking: If you smoke, Please STOP! Call for help. Follow-up with: GERARD CASTILLO MD [Primary Care Provider] - 2 Weeks (Return to PCP in 1 or 2 weeks)
--- NOTE | 2018-11-15 08:01 | MISCELLANEOUS PROVIDER NOTE ---
"Miscellaneous Provider Note - - Note: Discharge Summary Admit Date: 11/13/18 Discharge Date: 11/15/18 Discharging Provider: Dr. Fuller Primary Care Provider: [facility] navne Code Status: Attempt Resuscitation Condition at Discharge: Good Discharge Disposition: 01 Home, Self Care - DIAGNOSES Admission Diagnoses: (1) Rhabdomyolysis (2) Abnormal results of liver function studies (3) Elevated blood pressure reading without diagnosis of hypertension Discharge Diagnoses with Status of Each Condition: (1) Acute Rhabdomyolysis, Improved and Stable (2) Abnormal results of liver function studies, Resolving (3) Elevated blood pressure reading without diagnosis of hypertension, Stable (4) Bilateral upper extremity myalgias with limited ROM, Improved (5) Impaired fasting glucose, stable - HPI History of Present Illness: Mr. Oswaldo Berumen is a 38-year-old healthy white male who has no major medical illnesses. He was back on the [facility] looking for new housing since he is about to move there. 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 He has not worked out for about 3 weeks. Workout was particularly aggressive. Over the next few days he has had sore muscles that were getting worse. He felt weak and fatigued. Today his urine turned tea colored. He spoke to his physician at the [facility] and they recommended he come to the emergency room. He is taking Lamisil for fungal infection. He is not on a statin. He has had no trauma, falls. Denies fever, chills. There is no redness, swelling, heat to any muscle group. In the emergency room he was evaluated by Dr. Mcdaniels. He is slightly hypertensive at 155/110. After hydration with 2 L he came down to 138/85. He is afebrile, normal pulse rate, saturating well on room air. Physical exam is normal. However his CPK is 71,654. AST is 732, ALT 222. BUN and creatinine are normal as is a CBC. He is now placed in observation for rhabdomyolysis. He does not have electrolyte abnormality, renal failure. There is no muscle infection, trauma or myopathy requiring immunosuppressive's. - CONSULTS | PROCEDURES Consultations: None Procedures: None - HOSPITAL COURSE Hospital Course: Patient was managed medically and supportively with aggressive IV fluid resuscitation as well as pain control with oxycodone, Flexeril, and monitoring of his liver and renal function. In addition CK trending although markedly elevated is not a direct indicator of prognosis. Patient had Lamisil discontinued as this can potentiate further transaminitis and liver impairment. Patient was not placed on Tylenol for this reason alone as well. Patient had some limitations of bilateral upper extremity flexion secondary to his level of rhabdomyolysis however he was ambulatory. Patient was afebrile throughout hospitalization with a lactic acid 1.1 and no evidence of underlying infection or other organ involvement. Patient had a preserved renal function. Patient with oscillating levels of CK, however There has been some erroneous lab results due to dilution techniques and redrawing same labs in 1 day. In any event, Despite CK being above 82,000 rhabdomolysis usually begins to improve after approximately 3 to 5 days. Markedly elevated CK without the absence of renal insufficiency or metabolic acidosis does not prognosticate or is not a surrogate marker for increased mortality or morbidity. Patient lacks GI or symptoms and does not have gross hematuria. Patient will be be given a prescription to Flexeril 10 mg p.o. 3 times daily as needed as well as oxycodone 10 mg ER every 8 hours as needed for limited quantity. Patient will be given a prescription for prednisone 60 mg p.o. daily for 5-day course. This will help with the inflammatory component of rhabdomyolysis. Patient will be instructed to be off the Lamisil for now. Upon discharge patient was hemodynamically stable, complaining of myalgias mainly to the upper extremities and truncal area but otherwise unremarkable and able to go home in stable disposition to follow-up with PCP in 1 to 2 weeks. Patient may need to repeat CK level as an outpatient as well as LFTs to ensure that levels are falling and or downtrending. - ALLERGIES Allergies/Adverse Reactions: Allergies Allergy/AdvReac Type Severity Reaction Status Date / Time No Known Drug Allergies Allergy Verified 10/31/16 03:28 - MEDICATIONS Home Medications: Ambulatory Orders Medication Instructions Recorded Confirmed Cyclobenzaprine [Flexeril] 10 mg PO TID PRN #30 tablet 11/14/18 oxyCODONE ER [OxyCONTIN] 10 mg PO Q8HR #40 tablet 11/14/18 Zofran 4 mg p.o. every 4 to 6 as needed 11/15/18 Colace 250 mg p.o. daily as needed 11/15/18 Prednisone 20 mg, will take 3 tabs p.o. daily for a total of 5 Days. #15 tablet, 11/15/2018 - PHYSICAL EXAM AT DISCHARGE General Appearance: positive: No acute distress, Alert, Anxious Eyes Bilateral: positive: Normal inspection, PERRL, EOMI ENT: positive: ENT inspection nml, Pharynx nml, No signs of dehydration Neck: positive: Nml inspection, Thyroid nml, No JVD, Trachea midline Respiratory: positive: Chest non-tender, No respiratory distress, Breath sounds nml Cardiovascular: positive: Regular rate & rhythm, No murmur, No gallop Abdomen: positive: Non-tender, No organomegaly, Nml bowel sounds, No distention. negative: Tenderness Back: positive: Nml inspection Skin: positive: Color nml, No rash, Warm Extremities: positive: Nml appearance, Other (Bilateral upper extremity tenderness on palpation with limited range of motion to flexion) Neurologic/Psychiatric: positive: Oriented x3, CN's nml (2-12) Reflexes: Bicep (R): 2+, Bicep (L): 2+, Knee (R): 2+, Knee (L): 2+, Ankle (R): 2+, Ankle (L): 2+ - LABS Result Diagrams: 11/13/18 21:15 [Image 0] 11/14/18 05:30 [Image 1] - QUALITY (Female Hip Fx Only) Was patient sent home on osteoporosis medication?: No - FOLLOW UP Follow Up: To follow-up with [facility] in about 1 or 2 weeks to see his PCP - TIME SPENT Time Spent in Discharge (Minutes): 30"
[2018-11-15] MEDS ORDERED: DEXAMETHASONE 10 MG/ML VIAL IVP ONE (08:03)
[2018-11-15] MEDS: ONDANSETRON ODT 4 MG TABLET TL PRN ×2 (08:13→13:19)
[2018-11-15] MEDS: SODIUM CHLORIDE FLUSH 0.9% 10 ML SYRINGE IVP PRN (08:47)
[2018-11-15] MEDS ORDERED: DOCUSATE SODIUM 250 MG CAPSULE PO SCH (09:00)
[2018-11-15] MEDS ORDERED: PROCHLORPERAZINE 10 MG/2 ML VIAL IVP PRN (09:24)
[2018-11-15] MEDS: POLYETHYLENE GLYCOL 3350 17 GM PACKET PO SCH (10:18)
[2018-11-15 12:05] VITALS: BP 138/81
== END 2018-11-15 14:40 | disposition home or self-care (01) ==
LOC: ED 21:04 → MS2 23:57
PROVIDERS: ADMIT Specialist; ATTEND Family Medicine
DX: T79.6XXA Traumatic ischemia of muscle, initial encounter (principal); Y93.B9 Activity, other involving muscle strengthening exercises; X50.0XXA Overexertion from strenuous movement or load, initial encounter; R79.89 Other specified abnormal findings of blood chemistry; T49.0X5A Adverse effect of local antifungal, anti-infective and anti-inflammatory drugs, initial encounter; R03.0 Elevated blood-pressure reading, without diagnosis of hypertension; R73.01 Impaired fasting glucose; B35.1 Tinea unguium; G47.33 Obstructive sleep apnea (adult) (pediatric); Z87.891 Personal history of nicotine dependence
CPT/HCPCS: 36415; 80053; 81001; 82550; 82553; 83605; 83690; 85025; 85610; 85730; 96361; 96374; 96375; 96376; 99283; 99284; A9270; G0378; J1170; J7040; Q0162; 80048; 80306; 81003; 87086; 96360